=== PATIENT | female | born 1985 | race African-American/Black ===

== ENCOUNTER 2016-11-04 01:45 | Emergency (ER) | payer MEDICAID, OTHER ==
[~2016-11-04 01:45] MED LIST: BUSP5 PO; VIST25CA PO
[2016-11-04 01:53] VITALS: BP 163/89; PULSE 121; RESP 24; TEMP 97.7; O2SAT 98
--- NOTE | 2016-11-04 02:12 | PD ---
HPI Chief Complaint: Chest Pain Time Seen by Provider: 02:10 Travel History International Travel<30 days: No Contact w/Intl Traveler<30days: No Traveled to known affect area: No History of Present Illness HPI 30-year-old female presents to the emergency department by EMS transport in police custody handcuffed a stretcher complaining of chest pain. Patient is clenching her left chest holding onto her shirt complaining of pain. Patient has already ripped out her peripheral IV. Patient does not complain of any shortness of breath. Patient is noted to be tachycardic and agitated. Patient reports she is willing to cooperate. Patient states she has been seen numerous times in the emergency department for similar type complaints. No report of head injury or abdominal pain. No other concerns or complaints. Denies . PFSH Past Medical History Narrative Medical Bipolar disorder anxiety depression chest pain polysubstance ingestion sickle- cell trait ovarian surgery positive alcohol use denies tobacco use; nursing notes reviewed Bipolar Disorder: Yes (Diagnosed 2008) Anxiety: Yes Depression: Yes Cancer: No Cardiovascular Problems: Yes (HEART MURMUR, RECENT EKG) Diminished Hearing: Yes (Left eardrum trauma, diminished hearing) Endocrine: No Gastrointestinal Disorders: No Genitourinary: No Implanted Vascular Access Dvce: No Musculoskeletal: No Neurologic: No Psychiatric: Yes (BI POLAR) Reproductive: No Respiratory: No Immunizations Current: No Sickle Cell Disease: Yes (traits) Tetanus Vaccination: Unknown Influenza Vaccination: No ?: Not LMP: 10/2015 : 5 Para: 5 Ectopic : No Ovarian Cysts: No Dilation and Curettage (D&C): No Tubal Ligation: Yes Past Surgical History Section: No Gynecologic Surgery: Yes (SOMETHING DONE TO OVARY AN ) Hysterectomy: No Other Surgery: Yes (ovary surery as a bady removed) Social History Alcohol Use: Yes (occ) Tobacco Use: No Substance Use: Yes (marijuana) Allergies-Medications (Allergen,Severity, Reaction): Coded Allergies: No Known Allergies (Verified , 11/04/16) Reported Meds & Prescriptions Reported Meds & Active Scripts Active No Active Prescriptions or Reported Medications Review of Systems Except as stated in HPI: all other systems reviewed are Neg Physical Exam Narrative GENERAL: Well-developed well-nourished female in obvious discomfort no respiratory distress holding her chest wall shaking her leg SKIN: Warm and dry. HEAD: Normocephalic. EYES: No scleral icterus. No injection or drainage. NECK: Supple, trachea midline. No JVD or lymphadenopathy. CARDIOVASCULAR: Increased Regular rate and rhythm without murmurs, gallops, or rubs. RESPIRATORY: Breath sounds equal bilaterally. No accessory muscle use. GASTROINTESTINAL: Abdomen soft, non-tender, nondistended. MUSCULOSKELETAL: No cyanosis, or edema. BACK: Nontender without obvious deformity. No CVA tenderness. Data Data Last Documented VS Vital Signs Date Time Temp Pulse Resp B/P Pulse Ox O2 Delivery O2 Flow Rate FiO2 11/04/16 04:16 73 16 121/71 98 Room Air 11/04/16 01:53 97.7 Orders Complete Blood Count With Diff (11/04/16 02:10) Comprehensive Metabolic Panel (11/04/16 02:10) Electrocardiogram (11/04/16 02:10) Iv Access Insert/Monitor (11/04/16 02:10) Drug Screen, Random Urine (11/04/16 02:10) Alcohol (Ethanol) (11/04/16 02:10) Sodium Chlor 0.9% 1000 Ml Inj (Ns 1000 M (11/04/16 02:15) Ed Urine Pregnancytest Poc (11/04/16 02:10) Lorazepam Inj (Ativan Inj) (11/04/16 02:15) Troponin I (11/04/16 03:50) Cath For Specimen (11/04/16 03:50) Labs Laboratory Tests Test 11/04/16 02:30 White Blood Count 4.4 TH/MM3 Red Blood Count 4.69 MIL/MM3 Hemoglobin 13.1 GM/DL Hematocrit 38.7 % Mean Corpuscular Volume 82.4 FL Mean Corpuscular Hemoglobin 28.0 PG Mean Corpuscular Hemoglobin 34.0 % Concent Red Cell Distribution Width 13.7 % Platelet Count 272 TH/MM3 Mean Platelet Volume 9.9 FL Neutrophils (%) (Auto) 56.0 % Lymphocytes (%) (Auto) 35.7 % Monocytes (%) (Auto) 6.0 % Eosinophils (%) (Auto) 1.6 % Basophils (%) (Auto) 0.7 % Neutrophils # (Auto) 2.5 TH/MM3 Lymphocytes # (Auto) 1.6 TH/MM3 Monocytes # (Auto) 0.3 TH/MM3 Eosinophils # (Auto) 0.1 TH/MM3 Basophils # (Auto) 0.0 TH/MM3 CBC Comment DIFF FINAL Differential Comment Sodium Level 141 MEQ/L Potassium Level 3.7 MEQ/L Chloride Level 104 MEQ/L Carbon Dioxide Level 29.0 MEQ/L Anion Gap 8 MEQ/L Blood Urea Nitrogen 15 MG/DL Creatinine 1.15 MG/DL Estimat Glomerular Filtration 68 ML/MIN Rate Random Glucose 107 MG/DL Calcium Level 8.9 MG/DL Total Bilirubin 0.4 MG/DL Aspartate Amino Transf 20 U/L (AST/SGOT) Alanine Aminotransferase 24 U/L (ALT/SGPT) Alkaline Phosphatase 63 U/L Troponin I LESS THAN 0.02 NG/ML Total Protein 7.6 GM/DL Albumin 4.1 GM/DL Ethyl Alcohol Level LESS THAN 3 MG/DL MDM Medical Decision Making Medical Screen Exam Complete: Yes Emergency Medical Condition: Yes Medical Record Reviewed: Yes Interpretation(s) EKG: Sinus tachycardia rate 130 artifact is present at baseline no ST segment elevation is noted no acute injury pattern is noted poc hcg: negative CBC & BMP Diagram 11/04/16 02:30 troponin I: Less than 0.02, not elevated uds: Cannabinoids Differential Diagnosis Polysubstance ingestion, alcohol ingestion, chest pain, arrhythmia, musculoskeletal pain, pneumothorax, PE Narrative Course IV access obtained EKG performed shows sinus tachycardia no acute injury pattern ; 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 IV normal saline 1 L CBC is automated differential values grossly normal range; chemistries values are within normal limits; serum alcohol less than 3 Patient continues to rest quietly Patient finally able to provide urine specimen [id number] hCG negative Urine drug screen positive for cannabinoids Lab values otherwise grossly normal range and troponin I less than 0.02 Patient no longer complaining of any chest pain vital signs have normalized the patient is stable for release to police custody Diagnosis Primary Impression: Atypical chest pain Referrals: Primary Care Physician call for appointment [facility] call for appointment Patient Instructions: General Instructions Additional Instructions: Follow-up with your primary care provider or [facility] Return to the emergency department for any concerns or change in condition Increase fluid hydration without any alcoholic beverages use May take as tolerated acetaminophen for minor discomfort/pain Scripts No Active Prescriptions or Reported Meds Disposition: [address] LAW ENFORCEMNT Condition: Stable Salter,Yun H. MD Nov 04, 2016 02:12
[2016-11-04] MEDS ORDERED: LORazepam 2 MG/ML VIAL IV PUSH ONE (02:15)
[2016-11-04] MEDS ORDERED: SODIUM CHLOR 0.9% 1000 ML INJ 1,000 ML IV ONE (02:15)
[2016-11-04 03:06] LABS: AUTOMATED NEUTROPHIL # 2.5 TH/MM3 (1.8-7.7); BASOPHIL % 0.7 % (0.0-2.0); EOSINOPHIL # 0.1 TH/MM3 (0-0.4); EOSINOPHIL % 1.6 % (0.0-4.0); HEMATOCRIT 38.7 % (35.0-46.0); HEMO FLAGS DIFF FINAL; LYMPH % 35.7 % (9.0-44.0); LYMPHOCYTE # 1.6 TH/MM3 (1.0-4.8); MEAN CELL VOLUME 82.4 FL (80.0-100.0); PLATELET COUNT 272 TH/MM3 (150-450); RED BLOOD COUNT 4.69 MIL/MM3 (4.00-5.30); RED CELL DISTRIBUTION WIDTH 13.7 % (11.6-17.2); WHITE BLOOD COUNT 4.4 TH/MM3 (4.0-11.0)
[2016-11-04 03:22] LABS: ALT (GPT) 24 U/L (10-53); ANION GAP 8 MEQ/L (5-15); AST (GOT) 20 U/L (15-37); BLOOD UREA NITROGEN 15 MG/DL (7-18); CHLORIDE 104 MEQ/L (98-107); GLOMERULAR FILTRATION RATE 68 ML/MIN (>89); SODIUM (NA) 141 MEQ/L (136-145)
[2016-11-04 03:23] LABS: ALKALINE PHOSPHATASE 63 U/L (45-117); TOTAL BILIRUBIN ADULT 0.4 MG/DL (0.2-1.0)
[2016-11-04 03:36] LABS: POTASSIUM 3.7 MEQ/L (3.5-5.1)
[2016-11-04 04:16] VITALS: BP 121/71; PULSE 73; RESP 16; O2SAT 98
[2016-11-04 04:31] LABS: AMPHETAMINE, URINE NEG (NEG); BARBITURATES, URINE NEG (NEG); COCAINE, URINE NEG (NEG)
--- NOTE | 2016-11-04 12:12 | EKG ---
Date Performed: 11/04/2016 Time Performed: 02:02:49 PTAGE: 30 years EKG: SINUS TACHYCARDIA NONSPECIFIC ST & T-WAVE ABNORMALITY ABNORMAL RHYTHM ECG PREVIOUS TRACING : 07/23/2015 08.09 COMPARED TO PREVIOUS EKG SINUS TACHYCARDIA IS NEW DOCTOR: Daniel Salinas Interpretating Date/Time 11/04/2016 12:10:28
== END 2016-11-04 05:02 ==
LOC: NEPC 01:45
DX: R07.89 Other chest pain (principal); R00.0 Tachycardia, unspecified; R94.31 Abnormal electrocardiogram [ECG] [EKG]; F31.9 Bipolar disorder, unspecified; F41.9 Anxiety disorder, unspecified; D57.3 Sickle-cell trait
CPT/HCPCS: 80053; 80307; 84484; 84703; 85025; 93005; 96374; 99284; J2060; J7030

== ENCOUNTER 2017-05-17 11:14 | Inpatient (IN) | payer MEDICAID ==
[2017-05-17] VITALS (19 sets, daily range): BP systolic 127–167; BP diastolic 69–107; PULSE 74–127; RESP 12–20; TEMP 97.6–99.6; O2SAT 97–100
[~2017-05-17] VITALS: Ht 167.6 cm; Wt 66.7 kg
[2017-05-17] MEDS ORDERED: ETOMIDATE 40 MG/20 ML VIAL ONE (11:45)
[2017-05-17] MEDS ORDERED: NALOXONE HCL 2 MG/2 ML VIAL IV PUSH ONE (11:45)
[2017-05-17] MEDS ORDERED: SUCCINYLCHOLINE CHLORIDE 200 MG/10 ML VIAL ONE (11:46)
[2017-05-17] MEDS ORDERED: SODIUM CHLOR 0.9% 1000 ML INJ 1,000 ML IV ONE ×2 (12:01→12:45)
[2017-05-17] MEDS ORDERED: PROPOFOL 500 MG/50 ML INJ 50 ML ONE (12:09)
[2017-05-17] MEDS ORDERED: ACTIVATED CHARCOAL LIQUID 25 GM/120 ML BTL PO/NG ONE (12:15)
[2017-05-17] MEDS ORDERED: SODIUM CHLORIDE 0.9% FLUSH 10 ML FLUSH IVF PRN (12:15)
[2017-05-17] MEDS: DEXTROSE 10% INJ 1,000 ML IV SCH (12:31)
[2017-05-17] MEDS ORDERED: POTASSIUM PHOSPHATE INJ 30 MMOL in SODIUM CHLOR 0.9% 250 ML INJ 250 ML IV PRN (12:45)
[2017-05-17] MEDS ORDERED: POTASSIUM CHLOR 20 MEQ PREMIX 100 ML IV PRN (12:45)
[2017-05-17] MEDS ORDERED: MAGNESIUM HYDROXIDE SUSP 30 ML CUP PO PRN (12:45)
[2017-05-17] MEDS ORDERED: POTASSIUM CHLOR 40 MEQ PREMIX 100 ML IV PRN ×2 (12:45)
[2017-05-17] MEDS ORDERED: fentaNYL DRIP 250 ML IV PRN (12:45)
[2017-05-17] MEDS ORDERED: CHLORHEXIDINE GLUCONATE 2 % 1 PACK (2 CLOTHS) TOP PRN (12:45)
[2017-05-17] MEDS ORDERED: MAGNESIUM SULFATE INJ 2 GM in SODIUM CHLORIDE 0.9% INJ 96 ML IV PRN (12:45)
[2017-05-17] MEDS ORDERED: POTASSIUM PHOSPHATE MONOBASIC 500 MG TAB PO/TUBE PRN (12:45)
[2017-05-17] MEDS ORDERED: DEXTROSE 50% IN WATER 50 ML VIAL(D50) IV PUSH PRN (12:45)
[2017-05-17] MEDS ORDERED: MISCELLANEOUS NURSING INFORMATION XX SCH (12:45)
[2017-05-17] MEDS ORDERED: ONDANSETRON HCL 4 MG/2 ML VIAL IV PUSH PRN (12:45)
[2017-05-17] MEDS ORDERED: SODIUM PHOSPHATE INJ 30 MMOL in SODIUM CHLOR 0.9% 250 ML INJ 240 ML IV PRN (12:45)
[2017-05-17] MEDS ORDERED: MAGNESIUM SULFATE INJ 4 GM in SODIUM CHLORIDE 0.9% INJ 92 ML IV PRN (12:45)
[2017-05-17] MEDS ORDERED: POTASSIUM PHOSPHATE MONOBASIC 500 MG TAB PO PRN (12:45)
[2017-05-17] MEDS ORDERED: POTASSIUM CHLORIDE 25 MEQ EFFERVESCENT TAB PO PRN (12:45)
[2017-05-17] MEDS ORDERED: MAGNESIUM OXIDE 400 MG TAB PO PRN (12:45)
[2017-05-17 12:54] LABS: AUTOMATED NEUTROPHIL # 4.3 TH/MM3 (1.8-7.7); BASOPHIL # 0.1 TH/MM3 (0-0.2); EOSINOPHIL # 0.1 TH/MM3 (0-0.4); EOSINOPHIL % 1.2 % (0.0-4.0); HEMATOCRIT 37.6 % (35.0-46.0); HEMOGLOBIN 12.4 GM/DL (11.6-15.3); LYMPH % 23.8 % (9.0-44.0); LYMPHOCYTE # 1.5 TH/MM3 (1.0-4.8); MEAN CELL VOLUME 86.5 FL (80.0-100.0); MEAN CORPUSCULAR HEMOGLOBIN 28.7 PG (27.0-34.0); MEAN CORPUSCULAR HGB CONC 33.1 % (32.0-36.0); MEAN PLATELET VOLUME 9.1 FL (7.0-11.0); MONO % 6.5 % (0.0-8.0); MONOCYTE # 0.4 TH/MM3 (0-0.9); NEUT % 67.5 % (16.0-70.0); PLATELET COUNT 334 TH/MM3 (150-450); RED BLOOD COUNT 4.34 MIL/MM3 (4.00-5.30); RED CELL DISTRIBUTION WIDTH 14.4 % (11.6-17.2); WHITE BLOOD COUNT 6.4 TH/MM3 (4.0-11.0)
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
[2017-05-17 13:00] LABS: PROTHROMBIN TIME - PATIENT 10.5 SEC (9.8-11.6)
[2017-05-17] MEDS ORDERED: RESP: ALBUTEROL 2.5 MG/IPRATROPIUM 0.5 MG NEB (PRN) INH (13:00)
--- NOTE | 2017-05-17 13:00 | RADRPT ---
EXAM DATE/TIME: 05/17/2017 12:37 [facility] COMPARISON: CHEST SINGLE AP, July 23, 2015, 8:40. INDICATIONS : Post intubation MEDICAL HISTORY : unobtainable, possible overdose(ingestion)per EVAC SURGICAL HISTORY : unobtainable ENCOUNTER: Initial ACUITY: 1 day PAIN SCORE: Non-responsive. LOCATION: Bilateral chest FINDINGS: Endotracheal tube is in place and the tip is 1.6 cm above the uzma. Gastric tube traverses the fiel d-of-view. The lungs are symmetrically aerated and clear. The heart is normal in size. The central br onchopulmonary markings and both hemidiaphragms are well delineated. CONCLUSION: 1. ET tube tip 1.6 cm above the uzma. 2. The lungs are clear. Sree Mccormick MD on May 17, 2017 at 12:58 Board Certified Radiologist. This report was verified electronically.
[2017-05-17 13:01] LABS: AMORPHOUS SEDIMENT, URINE OCC; BACTERIA, URINE RARE /hpf; BILIRUBIN, URINE NEG (NEG); BLOOD, URINE NEG (NEG); GLUCOSE,URINE NEG (NEG); HYALINE CAST, URINE 9 /lpf (RARE); KETONE, URINE NEG (NEG); MUCUS URINE FEW /lpf (OCC); NITRITE,URINE NEG (NEG); PH, URINE 6.5 (5.0-8.5); SQUAMOUS EPITHELIAL CELL URINE 12 /hpf (0-5); URINE COLOR YELLOW (YELLW/STRAW); URINE LEUKOCYTE ESTERASE SMALL (NEG)
[2017-05-17 13:15] LABS: ALBUMIN 4.4 GM/DL (3.4-5.0); ALT (GPT) 86 U/L (10-53); AST (GOT) 67 U/L (15-37); BICARBONATE 18.9 MEQ/L (21.0-32.0); BLOOD UREA NITROGEN 13 MG/DL (7-18); CHLORIDE 105 MEQ/L (98-107); CREATININE 1.34 MG/DL (0.50-1.00); GLOMERULAR FILTRATION RATE 57 ML/MIN (>89); GLUCOSE,RANDOM 88 MG/DL (74-106); SODIUM (NA) 142 MEQ/L (136-145)
[2017-05-17 13:18] LABS: ALKALINE PHOSPHATASE 58 U/L (45-117); TOTAL BILIRUBIN ADULT 0.4 MG/DL (0.2-1.0); TOTAL PROTEIN 8.1 GM/DL (6.4-8.2)
--- NOTE | 2017-05-17 13:30 | PD ---
HPI Chief Complaint: OD/ Ingestion Time Seen by Provider: 12:01 Travel History International Travel<30 days: No Contact w/Intl Traveler<30days: No Traveled to known affect area: No History of Present Illness HPI The patient is 31 years old and arrives to the ER by EMS due to altered mental status. She is pleased to have ingested an unknown quantity of Benadryl, Xanax and potentially lithium. Time of ingestion is unknown. Shortly following arrival to the ER the patient required intubation due to repeated vomiting with inability to protect the gag reflex. EMS reports administering Narcan which did not help. She was reported to have been seizing at home. EMS notes a bottle of Benadryl at the bedside of unknown quantity. PFSH Past Medical History Bipolar Disorder: Yes (Diagnosed 2008) Anxiety: Yes Depression: Yes Cancer: No Cardiovascular Problems: Yes (HEART MURMUR, RECENT EKG) Diminished Hearing: Yes (Left eardrum trauma, diminished hearing) Endocrine: No Gastrointestinal Disorders: No Genitourinary: No Implanted Vascular Access Dvce: No Musculoskeletal: No Neurologic: No Psychiatric: Yes (BI POLAR) Reproductive: No Respiratory: No Immunizations Current: No Sickle Cell Disease: Yes (traits) ?: Unknown : 5 Para: 5 Ectopic : No Ovarian Cysts: No Dilation and Curettage (D&C): No Tubal Ligation: Yes Past Surgical History Section: No Gynecologic Surgery: Yes (SOMETHING DONE TO OVARY AN ) Hysterectomy: No Other Surgery: Yes (ovary surery as a bady removed) Social History Alcohol Use: Yes (occ) Tobacco Use: No Substance Use: Yes (marijuana) Allergies-Medications (Allergen,Severity, Reaction): Coded Allergies: No Known Allergies (Verified Allergy, Unknown, 05/17/17) Reported Meds & Prescriptions Reported Meds & Active Scripts Active Active Prescriptions or Reported Medications Unobtainable Review of Systems ROS Limitations: Altered Mental Status General / Constitutional: No: Fever Physical Exam Narrative GENERAL: 31 yo female, GCS 5 (motor 3, verbal 1, eyes 1), occasional vomiting, pink emesis about the clothing SKIN: Focused skin assessment warm/dry. HEAD: Atraumatic. Normocephalic. EYES: Pupils equal and reactive round. Gaze is conjugate. ENT: No nasal bleeding or discharge. Mucous membranes pink and moist. NECK: Trachea midline. No JVD. CARDIOVASCULAR: Tachycardia to about 100. regular. RESPIRATORY: Minimal tachypnea. Minimal wheezing bilaterally. GASTROINTESTINAL: Abdomen soft, non-tender, nondistended. Hepatic and splenic margins not palpable. MUSCULOSKELETAL: No obvious deformities. No clubbing. No cyanosis. No edema. NEUROLOGICAL: GCS 5. Gag reflex is absent. Pupils equal and reactive. The patient has occasional upper and lower extremity motor function. PSYCHIATRIC: Appropriate mood and affect; insight and judgment normal. Data Data Last Documented VS Vital Signs Date Time Temp Pulse Resp B/P (MAP) Pulse Ox O2 Delivery O2 Flow Rate FiO2 05/17/17 13:15 88 14 155/89 (111) 100 Ventilator 40 05/17/17 11:30 2.00 05/17/17 11:26 99.0 Vital signs reviewed Orders Orders Naloxone Inj (Narcan Inj) (05/17/17 11:45) Etomidate Inj (Amidate Inj) (05/17/17 11:45) Succinylcholine Inj (Quelicin Inj) (05/17/17 11:46) Electrocardiogram (05/17/17 12:01) Beta Hcg (Quant/Titer) (05/17/17 12:01) Complete Blood Count With Diff (05/17/17 12:01) Comprehensive Metabolic Panel (05/17/17 12:01) Prothrombin Time / Inr (Pt) (05/17/17 12:01) Act Partial Throm Time (Ptt) (05/17/17 12:01) Urinalysis - C+S If Indicated (05/17/17 12:01) Chest, Single Ap (05/17/17 12:01) Ct Brain W/O Iv Contrast(Rout) (05/17/17 12:01) Arterial Blood Gas (Abg) (05/17/17 12:01) Blood Glucose (05/17/17 12:01) Iv Access Insert/Monitor (05/17/17 12:01) Ecg Monitoring (05/17/17 12:01) Oximetry (05/17/17 12:01) Xi-Gastric Tube Insert/Mon (05/17/17 12:01) Oxygen Administration (05/17/17 12:01) Urinary Catheter Insert/Apply (05/17/17 12:01) Charcoal Activated Liq (Actidose-Aqua Li (05/17/17 12:15) Sodium Chloride 0.9% Flush (Ns Flush) (05/17/17 12:15) Sodium Chlor 0.9% 1000 Ml Inj (Ns 1000 M (05/17/17 12:01) Propofol 500 Mg/50 Ml Inj (Diprivan 500 (05/17/17 12:09) (Hub Use Only)Inp Phy Cons/Ref (05/17/17 ) [place] (Li) (05/17/17 12:31) Sodium Chlor 0.9% 1000 Ml Inj (Ns 1000 M (05/17/17 12:45) Cbc No Diff, Includes Plts (05/18/17 05:00) Cbc No Diff, Includes Plts (05/19/17 05:00) Cbc No Diff, Includes Plts (05/20/17 05:00) Cbc No Diff, Includes Plts (05/21/17 05:00) Cbc No Diff, Includes Plts (05/22/17 05:00) Cbc No Diff, Includes Plts (05/23/17 05:00) Cbc No Diff, Includes Plts (05/24/17 05:00) Basic Metabolic Panel (Bmp) (05/18/17 05:00) Basic Metabolic Panel (Bmp) (05/19/17 05:00) Basic Metabolic Panel (Bmp) (05/20/17 05:00) Basic Metabolic Panel (Bmp) (05/21/17 05:00) Basic Metabolic Panel (Bmp) (05/22/17 05:00) Basic Metabolic Panel (Bmp) (05/23/17 05:00) Basic Metabolic Panel (Bmp) (05/24/17 05:00) Neurological Rass Scale MARCIA.Q2H (05/17/17 12:31) Propofol 1000 Mg/100 Ml Inj (Diprivan 10 (05/17/17 12:45) RASS (05/17/17 12:31) ^ Infusion (05/17/17 12:31) Fentanyl Drip (Fentanyl Drip) (05/17/17 12:45) Neurological Rass Scale Q30MX2,Q2HX4,Q4H (05/17/17 12:31) ^ Medication Admin Instruction (05/17/17 12:31) Notify Dr: Other (05/17/17 12:31) Potassium Chlor 40 Meq Premix (Kcl 40 Me (05/17/17 12:45) Potassium Chlor 20 Meq Premix (Kcl 20 Me (05/17/17 12:45) Potassium Chloride Eff (K-Lyte Cl Eff) (05/17/17 12:45) Potassium Chlor 40 Meq Premix (Kcl 40 Me (05/17/17 12:45) Potassium Chlor 20 Meq Premix (Kcl 20 Me (05/17/17 12:45) Magnesium Sulfate Inj (Magnesium Sulfate (05/17/17 12:45) Magnesium Oxide (Mag-Ox) (05/17/17 12:45) Magnesium Sulfate Inj (Magnesium Sulfate (05/17/17 12:45) Potassium Phosphate (K-Phos) (05/17/17 12:45) Sodium Phosphate Inj (Sodium Phosphate I (05/17/17 12:45) Potassium Phosphate (K-Phos) (05/17/17 12:45) Potassium Phosphate Inj (Potassium Phosp (05/17/17 12:45) Inpatient Certification (05/17/17 12:31) Chlorhexidine 0.12% Liq (Peridex 0.12% L (05/17/17 20:00) Resp Ventilation- Volume (05/17/17 ) Ventilator Weaning Readiness MARCIA.DAILY@0800 (05/17/17 12:31) Elevate Head Of Bed (05/17/17 12:31) Bedside Glucose MARCIA.Q6H (05/17/17 12:31) Blood Glucose Goal (Criteria) (05/17/17 12:31) Hypoglycemia 51 - 69 Mg/Dl (05/17/17 12:31) Hypoglycemia 50 Mg/Dl Or < (05/17/17 12:31) Notify Dr: Other (05/17/17 12:31) Dextrose 50% In [place]oke (Vial) Inj (D50w (Vi (05/17/17 12:45) Insulin Human Reg Supp Scale (Novolin R (05/17/17 18:00) Diet Tube Feed Only (05/17/17 Breakfast) Dietary (Dietitian) Consult (05/17/17 12:31) Tube Feeding 08,20 (05/17/17 12:31) Neuro Checks MARCIA.Q1H (05/17/17 12:31) Albuterol-Ipratropium Neb (Duoneb Neb) (05/17/17 16:00) Albuterol-Ipratropium Neb (Duoneb Neb) (05/17/17 13:00) Urinary Catheter Management MARCIA.Q1H (05/17/17 12:31) Dextrose 10% Inj (D10w Inj) (05/17/17 12:31) Lactated Ringer's 1000 Ml Inj (Lr 1000 M (05/17/17 12:31) Tube Feeding 08,20 (05/17/17 12:31) Code Status (05/17/17 12:31) Vital Signs (Adult) MARCIA.Q1H (05/17/17 12:31) Activity Bed Rest (05/17/17 12:31) Elevate Head Of Bed (05/17/17 12:31) ^ Orogastric Tube (05/17/17 12:31) Famotidine Inj (Pepcid Inj) (05/17/17 21:00) Ondansetron Inj (Zofran Inj) (05/17/17 12:45) Science Teacher / Telemetry MARCIA.Q8H (05/17/17 12:31) Enoxaparin Inj (Lovenox Inj) (05/17/17 14:00) Scd Bilateral/Knee High MARCIA.BID (05/17/17 12:31) ^ Initiate Protocol (05/17/17 12:31) Instruction (05/17/17 12:31) [facility] Nursing Information (05/17/17 12:45) Chlorhexidine 2% Cloth (Chlorhexidine 2% (05/18/17 04:00) Chlorhexidine 2% Cloth (Chlorhexidine 2% (05/17/17 12:45) Mrsa Pcr Surveillance (05/17/17 12:31) Docusate Sodium-Senna (Maranda-Colace) (05/17/17 21:00) Magnesium Hydroxide Liq (Milk Of Magnesi (05/17/17 12:45) Tylenol (Acetaminophen) (05/17/17 12:31) Salicylates (Aspirin) (05/17/17 12:31) Alcohol (Ethanol) (05/17/17 12:31) Drug Screen,Ur W/Confirmation (05/17/17 12:31) Arterial Blood Gas (Abg) (05/17/17 12:36) Restraints Non-Violent MARCIA.Q3H (05/17/17 12:36) [place] (Li) (05/17/17 17:00) Admit Order (Ed Use Only) (05/17/17 ) Science Teacher / Telemetry MARCIA.Q8H (05/17/17 13:25) Vital Signs (Adult) Q4H (05/17/17 13:25) Diet Npo (05/17/17 Lunch) Activity Bed Rest (05/17/17 13:25) Labs Laboratory Tests Test 05/17/17 12:17 05/17/17 12:32 05/17/17 13:03 Blood Gas Puncture Site RT RADIAL Blood Gas Patient Temperature 98.6 Blood Gas HCO3 25 mmol/L Blood Gas Base Excess 1.3 mmol/L Blood Gas Oxygen Saturation 98 % Arterial Blood pH 7.47 Arterial Blood Partial Pressure CO2 34 mmHg Arterial Blood Partial Pressure O2 220 mmHG Arterial Blood Oxygen Content 17.3 Vol % Arterial Blood Carboxyhemoglobin 0.8 % Arterial Blood Methemoglobin 0.7 % Blood Gas Hemoglobin 12.1 G/DL Oxygen Delivery Device VENTILATOR Blood Gas Ventilator Setting 500/14/+5 Blood Gas Inspired Oxygen 50 % White Blood Count 6.4 TH/MM3 Red Blood Count 4.34 MIL/MM3 Hemoglobin 12.4 GM/DL Hematocrit 37.6 % Mean Corpuscular Volume 86.5 FL Mean Corpuscular Hemoglobin 28.7 PG Mean Corpuscular Hemoglobin Concent 33.1 % Red Cell Distribution Width 14.4 % Platelet Count 334 TH/MM3 Mean Platelet Volume 9.1 FL Neutrophils (%) (Auto) 67.5 % Lymphocytes (%) (Auto) 23.8 % Monocytes (%) (Auto) 6.5 % Eosinophils (%) (Auto) 1.2 % Basophils (%) (Auto) 1.0 % Neutrophils # (Auto) 4.3 TH/MM3 Lymphocytes # (Auto) 1.5 TH/MM3 Monocytes # (Auto) 0.4 TH/MM3 Eosinophils # (Auto) 0.1 TH/MM3 Basophils # (Auto) 0.1 TH/MM3 CBC Comment DIFF FINAL Differential Comment Prothrombin Time 10.5 SEC Prothromb Time International Ratio 1.0 RATIO Activated Partial Thromboplast Time 23.2 SEC Urine Color YELLOW Urine Turbidity HAZY Urine pH 6.5 Urine Specific [place] 1.012 Urine Protein TRACE mg/dL Urine Glucose (UA) NEG mg/dL Urine Ketones NEG mg/dL Urine Occult Blood NEG Urine Nitrite NEG Urine Bilirubin NEG Urine Urobilinogen LESS THAN 2.0 MG/DL Urine Leukocyte Esterase SMALL Urine RBC 3 /hpf Urine WBC 3 /hpf Urine Squamous Epithelial Cells 12 /hpf Urine Amorphous Sediment OCC Urine Bacteria RARE /hpf Urine Hyaline Casts 9 /lpf Urine Mucus FEW /lpf Microscopic Urinalysis Comment CULT NOT INDICATED Blood Urea Nitrogen 13 MG/DL Creatinine 1.34 MG/DL Random Glucose 88 MG/DL Total Protein 8.1 GM/DL Albumin 4.4 GM/DL Calcium Level 9.0 MG/DL Alkaline Phosphatase 58 U/L Aspartate Amino Transf (AST/SGOT) 67 U/L Alanine Aminotransferase (ALT/SGPT) 86 U/L Total Bilirubin 0.4 MG/DL Sodium Level 142 MEQ/L Potassium Level 2.9 MEQ/L Chloride Level 105 MEQ/L Carbon Dioxide Level 18.9 MEQ/L Anion Gap 18 MEQ/L Estimat Glomerular Filtration Rate 57 ML/MIN Human Chorionic Gonadotropin, Quant LESS THAN 1 MIU/ML Salicylates Level 2.5 MG/DL Urine Opiates Screen NEG Acetaminophen Level LESS THAN 2.0 MCG/ML Urine Barbiturates Screen NEG Urine Amphetamines Screen NEG Urine Benzodiazepines Screen NEG Urine Cocaine Screen NEG Urine Cannabinoids Screen POS Ethyl Alcohol Level LESS THAN 3 MG/DL [place] Level 0.1 MEQ/L MDM Medical Decision Making Medical Screen Exam Complete: Yes Emergency Medical Condition: Yes Medical Record Reviewed: Yes Differential Diagnosis Polysubstance overdose, aspiration pneumonia, suicide attempt Narrative Course CBC & BMP Diagram 05/17/17 12:32 Total Protein 8.1, Albumin 4.4, Calcium Level 9.0, Alkaline Phosphatase 58, Aspartate Amino Transf (AST/SGOT) 67 H, Alanine Aminotransferase (ALT/SGPT) 86 H , Total Bilirubin 0.4 7.47/34/25 HCG < 1 UTox cannabinoids positive Li 0.1 EtOH , 3 APAP < 2 Salicylates 2.5 EKG shows no QRS widening, rate is approximately 100 Pt intubated 2/2 absent gag reflex with vomiting. GCS 5. Activated charcoal administered via orogastric tube. Case discussed Dr Zapata. The patient's godmother reports the patient has no history of medication overdose previously Critical Care Narrative Aggregate critical care time was 40 minutes. Time to perform other separately billable procedures was not included in the critical care time. My time did not include minutes spent treating any other patients simultaneously or on activities that did not directly contribute to the patient's treatment. The services I provided to this patient were to treat and/or prevent clinically significant deterioration that could result in: Respiratory arrest, hypoxia I provided critical care services requiring my management, as noted below: Chart data review, documentation time, medication orders and management, vital sign assessments/reviewing monitor data, ordering and reviewing lab tests, ordering and interpreting/reviewing x-rays and diagnostic studies, care of the patient and discussion of the patient with the admitting physicians. Procedures Procedure Narrative After the risks and benefits were discussed the following procedure was performed: INTUBATION: The patient was put in optimal position for the procedure. Rapid sequence intubation was initiated by me using 220 milligrams of etomidate IV and 100 milligrams of succinylcholine IV. The patient was intubated with a 7-5 cuffed endotracheal tube. Tube placement was confirmed by visualization of the tube and balloon passing through the cords, capnometry and subsequent chest x-ray. Breath sounds were equal and well aerated bilaterally postintubation. No breath sounds over stomach. Patient tolerated procedure well. Diagnosis Primary Impression: Overdose Qualified Codes: T50.904A - Poisoning by unspecified drugs, medicaments and biological substances, undetermined, initial encounter Additional Impression: Airway intubation performed without difficulty Admitting Information Admitting Physician Requests: Admit Scripts Unable to Obtain Active Prescriptions or Reported Meds Jonathan Camara MD May 17, 2017 13:30
[2017-05-17 13:57] LABS: ACETAMINOPHEN LESS THAN 2.0 MCG/ML (10.0-30.0)
[2017-05-17] MEDS: PROPOFOL 1000 MG/100 ML INJ 100 ML IV PRN ×3 (14:09→23:49)
[2017-05-17] MEDS ORDERED: PROPOFOL 1000 MG/100 ML INJ 100 ML IV PRN (14:15)
[2017-05-17] MEDS ORDERED: SUCCINYLCHOLINE CHLORIDE 200 MG/10 ML VIAL IV PUSH ONE (14:15)
[2017-05-17] MEDS ORDERED: ETOMIDATE 20 MG/10 ML VIAL IVP ONE (14:15)
[2017-05-17] MEDS: POTASSIUM CHLOR 20 MEQ PREMIX 100 ML IV SCH ×3 (16:00→18:30)
[2017-05-17] MEDS ORDERED: POTASSIUM CHLORIDE 25 MEQ EFFERVESCENT TAB PO ONE (16:00)
[2017-05-17] MEDS: ENOXAPARIN SODIUM 40 MG/0.4 ML SYRINGE SQ SCH (17:53)
[2017-05-17] MEDS: LACTATED RINGER'S 1000 ML INJ 1,000 ML IV SCH ×2 (17:54→22:18)
[2017-05-17] MEDS: INSULIN NovoLIN REGULAR SUPPLEMENTAL SCALE SQ SCH (18:00)
[2017-05-17] MEDS: POTASSIUM CHLOR 20 MEQ PREMIX 100 ML IV PRN ×2 (18:03→20:24)
[2017-05-17 18:16] LABS: MAGNESIUM 2.3 MG/DL (1.5-2.5); PHOSPHORUS 3.6 MG/DL (2.5-4.9)
[2017-05-17] MEDS: CHLORHEXIDINE 0.12% (ORAL KIT) 15 ML CUP MT SCH (20:25)
[2017-05-17] MEDS: RESP: ALBUTEROL 2.5 MG/IPRATROPIUM 0.5 MG NEB (SCH) INH (20:29)
--- NOTE | 2017-05-17 20:34 | RADRPT ---
EXAM DATE/TIME: 05/17/2017 19:55 [facility] COMPARISON: CT PULMONARY ANGIOGRAM, July 23, 2015, 10:39. INDICATIONS : Increased lab values. MEDICAL HISTORY : Heart murmur. Sickle cell disease. Psychiatric problems. Depression. Anxiety. SURGICAL HISTORY : Ovary surgery during infancy. ENCOUNTER: Initial ACUITY: 1 day PAIN SCORE: Nonresponsive. LOCATION: Bilateral upper quadrant MEASUREMENTS: LIVER: 15.5 cm length COMMON DUCT: 4 mm RIGHT KIDNEY: 10.3 x 4.8 x 3.9 cm SPLEEN: 10.0 cm length FINDINGS: LIVER: Normal in size, shape and echogenicity with a 3.3 x 3.8 x 2.3 cm hyperechoic solid mass in the left l obe is fairly well defined and demonstrates no color flow. There are no additional lesions or ductal dilatation. COMMON DUCT: No intraluminal mass or stone visualized. GALLBLADDER: Contains no stones, demonstrates no wall thickening or pericholecystic fluid. PANCREAS: The visualized portions are within normal limits. RIGHT KIDNEY: No hydronephrosis, stone or mass. SPLEEN: No focal lesion. CONCLUSION: 1. Unremarkable gallbladder with no evidence of cholelithiasis. 2. Hyperechoic well defined mass in the anterior left lobe of the liver which is nonspecific but most characteristic of a cavernous hemangioma. Floerntino Hopper MD on May 17, 2017 at 20:29 Board Certified Radiologist. This report was verified electronically.
[2017-05-17] MEDS: FAMOTIDINE 20 MG/2 ML VIAL IV PUSH SCH (20:35)
[2017-05-17] MEDS: DOCUSATE SODIUM 50 MG/SENNA 8.6 MG TAB PO SCH (20:35)
--- NOTE | 2017-05-17 21:52 | RADRPT ---
EXAM DATE/TIME: 05/17/2017 21:42 [facility] COMPARISON: No previous studies available for comparison. INDICATIONS : Seizure, related to benadryl overdose. RADIATION DOSE: 50.74 CTDIvol (mGy) MEDICAL HISTORY : Cardiovascular disease. Sickle Cell disease. SURGICAL HISTORY : Tubal ligation. ENCOUNTER: Initial ACUITY: 1 day PAIN SCALE: Non-responsive LOCATION: cranial TECHNIQUE: Multiple contiguous axial images were obtained of the head. Using automated exposure control and adjustment of the mA and/or kV according to patient size, radiation dose was kept as low as reasonably achievable to obtain optimal diagnostic quality images. DICOM format image data is av ailable electronically for review and comparison. FINDINGS: CEREBRUM: The ventricles are normal for age. No evidence of midline shift, mass lesion, hemorrha ge or acute infarction. No extra-axial fluid collections are seen. POSTERIOR FOSSA: The cerebellum and brainstem are intact. The 4th ventricle is midline. The cer ebellopontine angle is unremarkable. EXTRACRANIAL: The visualized portion of the orbits is intact. SKULL: The calvaria is intact. No evidence of skull fracture. CONCLUSION: Negative noncontrast CT Florentino Hopper MD on May 17, 2017 at 21:49 Board Certified Radiologist. This report was verified electronically.
[2017-05-18] VITALS (16 sets, daily range): BP systolic 110–127; BP diastolic 60–77; PULSE 61–97; RESP 12–20; TEMP 97.2–99.4; O2SAT 97–100
[2017-05-18 03:31] LABS: HEMATOCRIT 30.3 % (35.0-46.0); HEMOGLOBIN 10.2 GM/DL (11.6-15.3); MEAN CORPUSCULAR HEMOGLOBIN 28.9 PG (27.0-34.0); MEAN CORPUSCULAR HGB CONC 33.7 % (32.0-36.0); MEAN PLATELET VOLUME 8.6 FL (7.0-11.0); PLATELET COUNT 251 TH/MM3 (150-450); RED BLOOD COUNT 3.53 MIL/MM3 (4.00-5.30); RED CELL DISTRIBUTION WIDTH 14.7 % (11.6-17.2); WHITE BLOOD COUNT 7.3 TH/MM3 (4.0-11.0)
[2017-05-18] MEDS: RESP: ALBUTEROL 2.5 MG/IPRATROPIUM 0.5 MG NEB (SCH) INH ×4 (03:56→21:29)
[2017-05-18] MEDS ORDERED: CHLORHEXIDINE GLUCONATE 2 % 1 PACK (2 CLOTHS) TOP SCH (04:00)
[2017-05-18 04:04] LABS: ALBUMIN 3.5 GM/DL (3.4-5.0); BICARBONATE 25.8 MEQ/L (21.0-32.0); CALCIUM 7.9 MG/DL (8.5-10.1); CREATININE 0.89 MG/DL (0.50-1.00); DIRECT BILIRUBIN ADULT 0.1 MG/DL (0.0-0.2); INDIRECT BILIRUBIN 0.1 MG/DL (0.0-0.8); TOTAL BILIRUBIN ADULT 0.2 MG/DL (0.2-1.0); TOTAL PROTEIN 5.8 GM/DL (6.4-8.2)
[2017-05-18] MEDS: INSULIN NovoLIN REGULAR SUPPLEMENTAL SCALE SQ SCH ×4 (06:00→17:26)
[2017-05-18] MEDS: PROPOFOL 1000 MG/100 ML INJ 100 ML IV PRN (06:11)
[2017-05-18] MEDS: POTASSIUM CHLOR 20 MEQ PREMIX 100 ML IV PRN ×2 (06:11→08:38)
[2017-05-18] MEDS: CHLORHEXIDINE 0.12% (ORAL KIT) 15 ML CUP MT SCH ×2 (08:00→19:25)
[2017-05-18] MEDS: LACTATED RINGER'S 1000 ML INJ 1,000 ML IV SCH ×2 (08:31→17:26)
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
[2017-05-18] MEDS: DOCUSATE SODIUM 50 MG/SENNA 8.6 MG TAB PO SCH ×2 (08:37→21:08)
[2017-05-18] MEDS: FAMOTIDINE 20 MG/2 ML VIAL IV PUSH SCH ×2 (08:37→21:08)
[2017-05-18] MEDS ORDERED: ALPRAZolam 0.5 MG TAB PO PRN (09:00)
[2017-05-18] MEDS: DEXTROSE 10% INJ 1,000 ML IV SCH (12:23)
[2017-05-18] MEDS: ENOXAPARIN SODIUM 40 MG/0.4 ML SYRINGE SQ SCH (14:00)
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
[2017-05-19 04:00] VITALS: BP 132/75; PULSE 68; RESP 20; TEMP 98.4; O2SAT 100
[2017-05-19] MEDS: INSULIN NovoLIN REGULAR SUPPLEMENTAL SCALE SQ SCH ×3 (05:58→12:00)
[2017-05-19 06:01] LABS: HEMATOCRIT 31.9 % (35.0-46.0); MEAN CORPUSCULAR HEMOGLOBIN 29.7 PG (27.0-34.0); MEAN CORPUSCULAR HGB CONC 34.6 % (32.0-36.0); MEAN PLATELET VOLUME 8.8 FL (7.0-11.0); PLATELET COUNT 291 TH/MM3 (150-450); RED BLOOD COUNT 3.71 MIL/MM3 (4.00-5.30); RED CELL DISTRIBUTION WIDTH 14.5 % (11.6-17.2); WHITE BLOOD COUNT 4.8 TH/MM3 (4.0-11.0)
[2017-05-19 06:30] LABS: ALBUMIN 3.4 GM/DL (3.4-5.0); CALCIUM 8.1 MG/DL (8.5-10.1); CREATININE 1.1 MG/DL (0.50-1.00); DIRECT BILIRUBIN ADULT 0.1 MG/DL (0.0-0.2)
[2017-05-19 06:33] LABS: INDIRECT BILIRUBIN 0.3 MG/DL (0.0-0.8); TOTAL BILIRUBIN ADULT 0.4 MG/DL (0.2-1.0); TOTAL PROTEIN 6.5 GM/DL (6.4-8.2)
[2017-05-19 08:00] VITALS: BP 135/84; PULSE 78; RESP 19; TEMP 98.6; O2SAT 100
[2017-05-19] MEDS: RESP: ALBUTEROL 2.5 MG/IPRATROPIUM 0.5 MG NEB (SCH) INH (08:14)
[2017-05-19 08:21] VITALS: O2SAT 94
[2017-05-19] MEDS: FAMOTIDINE 20 MG/2 ML VIAL IV PUSH SCH (09:07)
[2017-05-19] MEDS: DOCUSATE SODIUM 50 MG/SENNA 8.6 MG TAB PO SCH (09:07)
[2017-05-19] MEDS: CHLORHEXIDINE 0.12% (ORAL KIT) 15 ML CUP MT SCH (09:11)
[2017-05-19] MEDS ORDERED: LITH300C2 PO (11:50)
[2017-05-19] MEDS ORDERED: BUPR150XL PO (11:50)
--- NOTE | 2017-05-19 11:50 | HHI.PR ---
Subjective Remarks Patient says she is feeling well. Denies any chest pain or shortness breath. Denies any nausea or vomiting. She says that she was trying to hurt herself by taking multiple allergy tablets, however says that she is no longer suicidal. Plans to go home. She lives with her brothers. Objective Vital Signs Date Time Temp Pulse Resp B/P (MAP) Pulse Ox O2 Delivery O2 Flow Rate FiO2 05/19/17 08:00 98.6 78 19 135/84 (101) 100 05/19/17 04:00 98.4 68 20 132/75 (94) 100 05/18/17 22:40 97.2 82 20 127/60 (82) 99 05/18/17 22:00 97 05/18/17 21:31 100 05/18/17 20:35 100 05/18/17 20:00 99.4 82 16 122/74 (90) 97 05/18/17 20:00 82 05/18/17 16:00 76 05/18/17 16:00 97.6 05/18/17 15:09 97 21 05/18/17 12:00 98.5 05/18/17 12:00 80 I/O 05/18/17 05/18/17 05/18/17 05/19/17 05/19/17 05/19/17 07:00 15:00 23:00 07:00 15:00 23:00 Intake Total 200 ml 450 ml 240 ml Output Total 675 ml 900 ml Balance -675 ml 200 ml -450 ml 240 ml Intake Oral 450 ml 240 ml IV Total 200 ml Output Urine Total 675 ml 900 ml # Voids 2 # Bowel Movements 0 Result Diagram: 05/19/17 0540 05/19/17 0540 Imaging Last Impressions Head CT 05/17/17 1201 Signed Impressions: Service Date/Time: Wednesday, May 17, 2017 21:42 - CONCLUSION: Negative noncontrast CT Florentino Hopper MD Chest X-Ray 05/17/17 1201 Signed Impressions: Service Date/Time: Wednesday, May 17, 2017 12:37 - CONCLUSION: 1. ET tube tip 1.6 cm above the uzma. 2. The lungs are clear. Sree Mccormick MD Liver Ultrasound 05/17/17 0000 Signed Impressions: Service Date/Time: Wednesday, May 17, 2017 19:55 - CONCLUSION: 1. Unremarkable gallbladder with no evidence of cholelithiasis. 2. Hyperechoic well defined mass in the anterior left lobe of the liver which is nonspecific but most characteristic of a cavernous hemangioma. Florentino Hopper MD Objective Remarks GENERAL: Sitting up in bed. Appears comfortable. Alert and oriented 4. SKIN: Warm and dry. HEAD: Normocephalic. EYES: No scleral icterus. No injection or drainage. NECK: Supple, trachea midline. No JVD. CARDIOVASCULAR: Regular rate and rhythm without murmurs, gallops, or rubs. RESPIRATORY: Breath sounds equal bilaterally. No accessory muscle use. GASTROINTESTINAL: Abdomen soft, non-tender, nondistended. MUSCULOSKELETAL: No cyanosis, or edema. BACK: Nontender without obvious deformity. No CVA tenderness. A/P Assessment and Plan //Toxic encephalopathy secondary to Benadryl overdose. //Suicide attempt //Bipolar disorder //Depression //Anxiety -A she cleared for discharge by psychiatry. Patient is no longer suicidal. -Restart home medications at discharge. -Follow up with psychiatry as outpatient. //Transaminitis. Resolved. This is likely secondary to Benadryl overdose. //Station. Mild. Likely secondary to Benadryl. We'll order laxatives. //Incidental finding of what appears to be cavernous hemangioma on liver ultrasound. Follow-up primary care. //Marijuana abuse. Patient counseled on cessation. Discharge Planning Discharge home. Follow-up with psychiatry and primary care. Chad Wilson MD May 19, 2017 11:50
[2017-05-19] MEDS ORDERED: ABIL10TA8 PO (11:51)
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
[2017-05-19 12:00] VITALS: BP 115/61; PULSE 83; RESP 18; TEMP 98.5; O2SAT 96
[2017-05-19] MEDS ORDERED: MAGNESIUM HYDROXIDE SUSP 30 ML CUP PO ONE (12:00)
[2017-05-19] MEDS ORDERED: DOCUSATE SODIUM 50 MG/SENNA 8.6 MG TAB PO ONE (12:00)
--- NOTE | 2017-05-19 13:32 | EKG ---
Date Performed: 05/17/2017 Time Performed: 11:21:26 PTAGE: 31 years EKG: SINUS TACHYCARDIA MINIMAL VOLTAGE CRITERIA FOR LVH, CONSIDER NORMAL VARIANT NONSPECIFIC ST & T-WAVE ABNORMALITY ST-T wave changes are more prominent from the prior tracing and clinical correla tion needed for possible ischemia ABNORMAL RHYTHM ECG NO PREVIOUS TRACING DOCTOR: Juanito Chatman Interpretating Date/Time 05/19/2017 13:31:09
[2017-05-19] MEDS: ENOXAPARIN SODIUM 40 MG/0.4 ML SYRINGE SQ SCH (14:00)
[2017-05-21 14:10] LABS: HEPATITIS A AB IGM NEGATIVE (NEGATIVE); HEPATITIS B CORE AB IGM NEGATIVE (NEGATIVE); HEPATITIS B SURFACE ANTIGEN NEGATIVE (NEGATIVE); HEPATITIS C AB IgG NEGATIVE (NEGATIVE)
== END 2017-05-19 13:30 | disposition home or self-care (01) | DRG 917 ==
LOC: NEPC 11:14 → NEDA 13:27 → HIME 17:15 → N04A 05-18 22:27
PROVIDERS: ADMIT Internal Medicine; ATTEND Internal Medicine
PROC: 0BH17EZ Insertion of Endotracheal Airway into Trachea, Via Natural or Artificial Opening (ICD-10-PCS; principal; 2017-05-17)
PROC: 5A1935Z Respiratory Ventilation, Less than 24 Consecutive Hours (ICD-10-PCS; 2017-05-17)
DX: T45.0X2A Poisoning by antiallergic and antiemetic drugs, intentional self-harm, initial encounter (principal); J96.01 Acute respiratory failure with hypoxia; G92 Toxic encephalopathy; J96.02 Acute respiratory failure with hypercapnia; N17.9 Acute kidney failure, unspecified; F31.9 Bipolar disorder, unspecified; F41.9 Anxiety disorder, unspecified; R00.0 Tachycardia, unspecified; E87.6 Hypokalemia; R73.9 Hyperglycemia, unspecified; K76.89 Other specified diseases of liver; D18.03 Hemangioma of intra-abdominal structures; R74.0 Nonspecific elevation of levels of transaminase and lactic acid dehydrogenase [LDH]; F12.10 Cannabis abuse, uncomplicated
CPT/HCPCS: 31500; 36600; 43753; 51702; 70450; 71010; 76705; 80048; 80053; 80074; 80076; 80178; 80307; 81001; 82550; 82552; 82805; 82948; 83735; 84100; 84132; 84702; 85025; 85027; 85610; 85730; 87641; 93005; 94002; 94003; 94640; 94664; 96374; J0330; J1650; J2310; J3010; J3480; J7030; J7120

== ENCOUNTER 2017-07-26 12:42 | Emergency (ER) | payer MEDICAID, OTHER ==
[~2017-07-26] VITALS: Ht 162.6 cm; Wt 60.0 kg
[~2017-07-26 12:42] MED LIST changes: +ABIL10TA8 PO; +BUPR150XL PO; -BUSP5 PO; +LITH300C2 PO; -VIST25CA PO
[2017-07-26 12:55] VITALS: BP 138/80; PULSE 105; RESP 20; TEMP 100.9; O2SAT 99
[2017-07-26] MEDS ORDERED: ACETAMINOPHEN 500 MG CPLT PO ONE (13:45)
[2017-07-26] MEDS ORDERED: PROMETHAZINE/CODEINE 6.25 MG/10 MG/5 ML CUP PO ONE (13:45)
[2017-07-26] MEDS ORDERED: ONDANSETRON HCL 4 MG/2 ML VIAL IV PUSH ONE (13:45)
[2017-07-26] MEDS ORDERED: SODIUM CHLOR 0.9% 1000 ML INJ 1,000 ML IV ONE (13:45)
--- NOTE | 2017-07-26 13:52 | PD ---
HPI Chief Complaint: Cold / Flu Symptoms Time Seen by Provider: 13:37 Travel History International Travel<30 days: No Contact w/Intl Traveler<30days: No Traveled to known affect area: No History of Present Illness HPI The patient is a 31-year-old female who presents emergency department for cough and cold symptoms of one week's duration. The patient's symptoms started approximately one week ago with fever. She has intermittent chills and sweats. She now notes a productive cough producing yellow sputum. She complains of headache, nausea, but denies any vomiting, diarrhea, or abdominal pain. She does endorse diffuse myalgias and arthralgias. She did not receive an influenza vaccination this year. She does complain of mild discomfort with urination but denies any frequency or urgency. She denies any vaginal discharge or vaginal bleeding. Last menstrual cycle was 4 17, she denies . Symptoms are moderate. Patient symptoms are not alleviated with TheraFlu. The patient does use marijuana occasionally, denies any IV drug abuse. PFSH Past Medical History Bipolar Disorder: Yes (Diagnosed 2008) Anxiety: Yes Depression: Yes Cancer: No Cardiovascular Problems: Yes (HEART MURMUR, RECENT EKG) Diminished Hearing: Yes (Left eardrum trauma, diminished hearing) Endocrine: No Gastrointestinal Disorders: No Genitourinary: No Implanted Vascular Access Dvce: No Musculoskeletal: No Neurologic: No Psychiatric: Yes (BI POLAR) Reproductive: No Respiratory: No Immunizations Current: No Sickle Cell Disease: Yes (trait) ?: Not LMP: JUN 2017 : 5 Para: 5 Ectopic : No Ovarian Cysts: No Dilation and Curettage (D&C): No Tubal Ligation: Yes Past Surgical History Section: No Gynecologic Surgery: Yes (SOMETHING DONE TO OVARY AN INFANT) Hysterectomy: No Other Surgery: Yes (ovary surery as a baBy removed) Social History Alcohol Use: Yes (occ) Tobacco Use: No Substance Use: Yes (marijuana) Allergies-Medications (Allergen,Severity, Reaction): Coded Allergies: No Known Allergies (Verified Allergy, Unknown, 05/17/17) Reported Meds & Prescriptions Reported Meds & Active Scripts Active Reported Abilify (Aripiprazole) 10 Mg Tab 10 Mg PO DAILY [place] Carbonate 300 Mg Cap 300 Mg PO BID Wellbutrin Xl 24 HR (Bupropion HCl) 150 Mg Tab 150 Mg PO DAILY Review of Systems Except as stated in HPI: all other systems reviewed are Neg General / Constitutional: Positive: Fever, Chills HENT: Positive: Sore Throat, Congestion Cardiovascular: No: Chest Pain or Discomfort Respiratory: Positive: Cough Gastrointestinal: Positive: Nausea, No: Vomiting, Diarrhea, Abdominal Pain Genitourinary: Positive: Dysuria, No: Discharge, Vaginal Bleeding Musculoskeletal: Positive: Myalgias Physical Exam Narrative GENERAL: Awake, alert, pleasant 31-year-old female who appears her stated age and is in no acute respiratory distress. SKIN: Focused skin assessment warm/dry. HEAD: Atraumatic. Normocephalic. EYES: Pupils equal and round. No scleral icterus. No injection or drainage. ENT: No nasal bleeding or discharge. Oropharynx reveals erythema. NECK: Trachea midline. No JVD. CARDIOVASCULAR: Regular, tachycardic with a heart rate over 5. RESPIRATORY: No accessory muscle use. Clear to auscultation. Breath sounds equal bilaterally. GASTROINTESTINAL: Abdomen soft, non-tender, nondistended. No rebound tenderness. Back: No CVA tenderness. MUSCULOSKELETAL: No obvious deformities. No clubbing. No cyanosis. No edema. NEUROLOGICAL: Awake and alert. No obvious cranial nerve deficits. Motor grossly within normal limits. Normal speech. PSYCHIATRIC: Appropriate mood and affect; insight and judgment normal. Data Data Last Documented VS Vital Signs Date Time Temp Pulse Resp B/P (MAP) Pulse Ox O2 Delivery O2 Flow Rate FiO2 07/26/17 15:24 89 17 113/57 (75) 98 Room Air 07/26/17 12:55 100.9 Orders Orders Complete Blood Count With Diff (07/26/17 12:58) Comprehensive Metabolic Panel (07/26/17 12:58) Urinalysis - C+S If Indicated (07/26/17 12:58) Influenzae A/B Antigen (07/26/17 12:58) Sepsis Workup Initiated (07/26/17 ) Chest, Single Ap (07/26/17 13:44) Blood Glucose (07/26/17 13:44) Ecg Monitoring (07/26/17 13:44) Iv Access Insert/Monitor (07/26/17 13:44) Oximetry (07/26/17 13:44) Oxygen Administration (07/26/17 13:44) Ed Urine Pregnancytest Poc (07/26/17 13:44) Sodium Chlor 0.9% 1000 Ml Inj (Ns 1000 M (07/26/17 13:45) Ondansetron Inj (Zofran Inj) (07/26/17 13:45) Promethazine/Codeine Liq (Phenergan-Code (07/26/17 13:45) Acetaminophen (Tylenol) (07/26/17 13:45) Potassium Chloride (Kcl) (07/26/17 15:00) Lactic Acid (07/26/17 14:54) Urine Culture (07/26/17 14:00) Ceftriaxone Inj (Rocephin Inj) (07/26/17 15:15) Labs Laboratory Tests Test 07/26/17 14:00 White Blood Count 8.9 TH/MM3 Red Blood Count 4.33 MIL/MM3 Hemoglobin 12.6 GM/DL Hematocrit 35.1 % Mean Corpuscular Volume 81.0 FL Mean Corpuscular Hemoglobin 29.1 PG Mean Corpuscular Hemoglobin Concent 35.9 % Red Cell Distribution Width 12.8 % Platelet Count 303 TH/MM3 Mean Platelet Volume 8.5 FL Neutrophils (%) (Auto) 75.0 % Lymphocytes (%) (Auto) 14.0 % Monocytes (%) (Auto) 10.3 % Eosinophils (%) (Auto) 0.1 % Basophils (%) (Auto) 0.6 % Neutrophils # (Auto) 6.7 TH/MM3 Lymphocytes # (Auto) 1.2 TH/MM3 Monocytes # (Auto) 0.9 TH/MM3 Eosinophils # (Auto) 0.0 TH/MM3 Basophils # (Auto) 0.1 TH/MM3 CBC Comment DIFF FINAL Differential Comment Urine Color YELLOW Urine Turbidity HAZY Urine pH 6.5 Urine Specific [place] 1.006 Urine Protein 30 mg/dL Urine Glucose (UA) NEG mg/dL Urine Ketones 10 mg/dL Urine Occult Blood SMALL Urine Nitrite NEG Urine Bilirubin NEG Urine Urobilinogen 2.0 MG/DL Urine Leukocyte Esterase LARGE Urine RBC LESS THAN 1 /hpf Urine WBC 129 /hpf Urine WBC Clumps FEW Urine Squamous Epithelial Cells 5 /hpf Urine Bacteria MOD /hpf Microscopic Urinalysis Comment CULTURE INDICATED Blood Urea Nitrogen 6 MG/DL Creatinine 0.99 MG/DL Random Glucose 91 MG/DL Total Protein 7.7 GM/DL Albumin 3.4 GM/DL Calcium Level 8.5 MG/DL Alkaline Phosphatase 82 U/L Aspartate Amino Transf (AST/SGOT) 16 U/L Alanine Aminotransferase (ALT/SGPT) 17 U/L Total Bilirubin 0.5 MG/DL Sodium Level 133 MEQ/L Potassium Level 3.3 MEQ/L Chloride Level 97 MEQ/L Carbon Dioxide Level 29.5 MEQ/L Anion Gap 7 MEQ/L Estimat Glomerular Filtration Rate 80 ML/MIN Lactic Acid Level 1.2 mmol/L MDM Medical Decision Making Medical Screen Exam Complete: Yes Emergency Medical Condition: Yes Medical Record Reviewed: Yes Interpretation(s) Last Impressions Chest X-Ray 07/26/17 1344 Signed Impressions: Service Date/Time: Wednesday, July 26, 2017 14:16 - CONCLUSION: Normal examination. Sree Zapata Jr., MD Date/Time Source Procedure Growth Status 07/26/17 14:00 Nasal Aspirate Influenza Types A,B Antigen (GYPSY) - Final Complete 07/26/17 14:00 Urine Clean Catch Urine Culture Pending Received Laboratory Tests Test 07/26/17 14:00 White Blood Count 8.9 TH/MM3 Red Blood Count 4.33 MIL/MM3 Hemoglobin 12.6 GM/DL Hematocrit 35.1 % Mean Corpuscular Volume 81.0 FL Mean Corpuscular Hemoglobin 29.1 PG Mean Corpuscular Hemoglobin Concent 35.9 % Red Cell Distribution Width 12.8 % Platelet Count 303 TH/MM3 Mean Platelet Volume 8.5 FL Neutrophils (%) (Auto) 75.0 % Lymphocytes (%) (Auto) 14.0 % Monocytes (%) (Auto) 10.3 % Eosinophils (%) (Auto) 0.1 % Basophils (%) (Auto) 0.6 % Neutrophils # (Auto) 6.7 TH/MM3 Lymphocytes # (Auto) 1.2 TH/MM3 Monocytes # (Auto) 0.9 TH/MM3 Eosinophils # (Auto) 0.0 TH/MM3 Basophils # (Auto) 0.1 TH/MM3 CBC Comment DIFF FINAL Differential Comment Urine Color YELLOW Urine Turbidity HAZY Urine pH 6.5 Urine Specific [place] 1.006 Urine Protein 30 mg/dL Urine Glucose (UA) NEG mg/dL Urine Ketones 10 mg/dL Urine Occult Blood SMALL Urine Nitrite NEG Urine Bilirubin NEG Urine Urobilinogen 2.0 MG/DL Urine Leukocyte Esterase LARGE Urine RBC LESS THAN 1 /hpf Urine WBC 129 /hpf Urine WBC Clumps FEW Urine Squamous Epithelial Cells 5 /hpf Urine Bacteria MOD /hpf Microscopic Urinalysis Comment CULTURE INDICATED Blood Urea Nitrogen 6 MG/DL Creatinine 0.99 MG/DL Random Glucose 91 MG/DL Total Protein 7.7 GM/DL Albumin 3.4 GM/DL Calcium Level 8.5 MG/DL Alkaline Phosphatase 82 U/L Aspartate Amino Transf (AST/SGOT) 16 U/L Alanine Aminotransferase (ALT/SGPT) 17 U/L Total Bilirubin 0.5 MG/DL Sodium Level 133 MEQ/L Potassium Level 3.3 MEQ/L Chloride Level 97 MEQ/L Carbon Dioxide Level 29.5 MEQ/L Anion Gap 7 MEQ/L Estimat Glomerular Filtration Rate 80 ML/MIN Lactic Acid Level 1.2 mmol/L Differential Diagnosis Differential diagnosis includes influenza, bronchitis, viral syndrome, pneumonia , sepsis, pyelonephritis, dehydration. Narrative Course IV was established, labs are drawn and sent, and the patient was placed on cardiac telemetry monitoring and continuous pulse oximetry monitoring. Chest x- ray was obtained. Influenza screen was sent to lab. UA was sent to lab and bedside UA test was obtained. The patient was administered Tylenol, Zofran, Phenergan with codeine, and 1 L of IV fluids. Influenza screen was negative. Chest x-rays unremarkable. UA is positive for infection consistent with pyelonephritis. The patient was administer Rocephin 1 g intravenously. Lactic acid was normal. The patient was reevaluated, symptoms have improved. The patient be discharged home with Cipro and Phenergan With Codeine. She is advised to alternate Tylenol and Motrin as needed for pain and fever. Follow- up with a primary physician. Sepsis Criteria SIRS Criteria (2 or more): Temp > 100.9 or < 96.8, Heart rate over 90 Diagnosis Primary Impression: Pyelonephritis Additional Impression: Viral syndrome Patient Instructions: General Instructions Additional Instructions: Medications as directed. Please provide the patient a copy of her lab results, x-ray results, and flu results at discharge. Follow-up with your primary physician. Return if symptoms worsen or progress. Alternate Tylenol and Motrin for pain and fever. Med/Other Pt SpecificInfo: Prescription(s) given Scripts Ciprofloxacin (Cipro) 500 Mg Tab 500 MG PO BID for Infection for 7 Days, #14 TAB 0 Refills Prov: Asher Dave MD 07/26/17 Promethazine-Codeine Liq (Promethazine-Codeine Liq) 6.25-10 Mg/5 Ml Syrp 10 ML PO Q6H Y for COUGH AND/OR COLD SYMPTOMS, #120 ML 0 Refills Prov: Asher Dave MD 07/26/17 Disposition: 01 DISCHARGE HOME Condition: Stable Asher Dave MD Jul 26, 2017 13:52
[2017-07-26 14:30] LABS: AUTOMATED NEUTROPHIL # 6.7 TH/MM3 (1.8-7.7); BASOPHIL # 0.1 TH/MM3 (0-0.2); BASOPHIL % 0.6 % (0.0-2.0); EOSINOPHIL % 0.1 % (0.0-4.0); HEMATOCRIT 35.1 % (35.0-46.0); HEMOGLOBIN 12.6 GM/DL (11.6-15.3); LYMPHOCYTE # 1.2 TH/MM3 (1.0-4.8); MEAN CORPUSCULAR HEMOGLOBIN 29.1 PG (27.0-34.0); MEAN CORPUSCULAR HGB CONC 35.9 % (32.0-36.0); MEAN PLATELET VOLUME 8.5 FL (7.0-11.0); MONO % 10.3 % (0.0-8.0); MONOCYTE # 0.9 TH/MM3 (0-0.9); PLATELET COUNT 303 TH/MM3 (150-450); RED BLOOD COUNT 4.33 MIL/MM3 (4.00-5.30); RED CELL DISTRIBUTION WIDTH 12.8 % (11.6-17.2); WHITE BLOOD COUNT 8.9 TH/MM3 (4.0-11.0)
--- NOTE | 2017-07-26 14:41 | RADRPT ---
EXAM DATE/TIME: 07/26/2017 14:16 [facility] COMPARISON: CHEST SINGLE AP, May 17, 2017, 12:37. INDICATIONS : Cough and chest pain for one week. MEDICAL HISTORY : Heart murmr. SURGICAL HISTORY : Tubal ligation. ENCOUNTER: Initial ACUITY: 1 week PAIN SCORE: 6/10 LOCATION: Bilateral chest FINDINGS: A single view of the chest demonstrates the lungs to be symmetrically aerated without evidence of mas s, infiltrate or effusion. The cardiomediastinal contours are unremarkable. Osseous structures are intact. CONCLUSION: Normal examination. Sree Zapata Jr., MD on July 26, 2017 at 14:37 Board Certified Radiologist. This report was verified electronically.
[2017-07-26 14:44] LABS: ALBUMIN 3.4 GM/DL (3.4-5.0); ALT (GPT) 17 U/L (10-53); AST (GOT) 16 U/L (15-37); BICARBONATE 29.5 MEQ/L (21.0-32.0); BLOOD UREA NITROGEN 6 MG/DL (7-18); CALCIUM 8.5 MG/DL (8.5-10.1); CHLORIDE 97 MEQ/L (98-107); CREATININE 0.99 MG/DL (0.50-1.00); GLOMERULAR FILTRATION RATE 80 ML/MIN (>89); GLUCOSE,RANDOM 91 MG/DL (74-106); SODIUM (NA) 133 MEQ/L (136-145)
[2017-07-26 14:46] LABS: ALKALINE PHOSPHATASE 82 U/L (45-117); TOTAL BILIRUBIN ADULT 0.5 MG/DL (0.2-1.0); TOTAL PROTEIN 7.7 GM/DL (6.4-8.2)
[2017-07-26 14:48] LABS: BACTERIA, URINE MOD /hpf; BILIRUBIN, URINE NEG (NEG); BLOOD, URINE SMALL (NEG); GLUCOSE,URINE NEG (NEG); KETONE, URINE 10 mg/dL (NEG); NITRITE,URINE NEG (NEG); PH, URINE 6.5 (5.0-8.5); SQUAMOUS EPITHELIAL CELL URINE 5 /hpf (0-5); URINE COLOR YELLOW (YELLW/STRAW); URINE LEUKOCYTE ESTERASE LARGE (NEG); WHITE BLOOD CELL CLUMPS FEW
[2017-07-26] MEDS ORDERED: POTASSIUM CHLORIDE 20 MEQ CONTROLLED RELEASE TAB PO ONE (15:00)
[2017-07-26] MEDS ORDERED: cefTRIAXone INJ 1,000 MG in SODIUM CHLORIDE 0.9% INJ 100 ML IV ONE (15:15)
[2017-07-26 15:24] VITALS: BP 113/57; PULSE 89; RESP 17; O2SAT 98
[2017-07-26] MEDS ORDERED: PROM6.256 PO (15:44)
[2017-07-26] MEDS ORDERED: CIPR-9 PO (15:44)
== END 2017-07-26 16:11 | disposition home or self-care (01) ==
LOC: NEPD 12:42
DX: N12 Tubulo-interstitial nephritis, not specified as acute or chronic (principal); B34.9 Viral infection, unspecified; F12.90 Cannabis use, unspecified, uncomplicated; F31.9 Bipolar disorder, unspecified
CPT/HCPCS: 71045; 80053; 81001; 83605; 84703; 85025; 87077; 87086; 87186; 87804; 96361; 96374; 96375; 99284; J0696; J2405; J7030